=== PATIENT | female | born 1975 | race Caucasian/White ===

== ENCOUNTER → 2016-09-19 | Outpatient (CLI) | payer BC ==
[~2016-09-19] MED LIST: ALEVE 220MG220 MG PO; CIPRO 500MG TA500 MG PO; LEVAQUIN 250MG250 MG PO; MULTIPLE VITAMI1 CAP PO; NO HOME MEDICATIONS; PREMARIN1.25 MG PO; VICODIN 5/5001 UDTAB PO; ZOFRAN4 M1 PO
== END ==
LOC: MC.RAD 14:53
DX: Z12.31 Encounter for screening mammogram for malignant neoplasm of breast (principal)

== ENCOUNTER → 2016-09-26 | Outpatient (CLI) | payer BC | LOC: MC.RAD 12:56 | DX: D24.1 Benign neoplasm of right breast (principal); Z80.3 Family history of malignant neoplasm of breast ==